=== PATIENT | male | born 1950 ===

== ENCOUNTER 2017-08-12 00:28 | Emergency (ER) | payer MEDICAID ==
[~2017-08-12] VITALS: Ht 172.7 cm; Wt 80.0 kg
[2017-08-12 00:39] VITALS: Ht 172.7 cm; Wt 80.0 kg
--- NOTE | 2017-08-12 00:43 | ERD ---
ER Documentation Chief Complaint Chief Complaint poss. fall HPI The patient is a 66-year-old male, presenting to the ER because he slipped while he was transferring himself from the wheelchair onto a shower chair to arrival. He is awake, alert, denies any trauma, denies headache, neck pain, chest pain, dyspnea, abdominal pain, vomiting, dysuria, diarrhea. He does not smoke nor drink. He is on fentanyl patch for chronic pain syndrome Past medical history: Chronic kidney disease, hypertension, dyslipidemia, chronic pain syndrome Surgical history: Bilateral knee and bilateral shoulder hemiarthroplasty ROS All systems reviewed and are negative except as per history of present illness. Allergies Allergies: Coded Allergies: No Known Allergy (Unverified , 08/12/17) Physical Exam Vitals Vital Signs Date Time Temp Pulse Resp B/P Pulse Ox O2 Delivery O2 Flow Rate FiO2 08/12/17 00:56 90 20 127/74 94 Room Air 08/12/17 00:39 97.9 74 20 127/74 94 Physical Exam Const: No acute distress. Awake, alert, able to answer question appropriately Head: Atraumatic. Eyes: Normal Conjunctiva. ENT: Normal External Ears, Nose and Mouth. Neck: Full range of motion. No meningismus. Resp: Clear to auscultation bilaterally. Cardio: Regular rate and rhythm. Abd: Soft, non distended, normal bowel sounds, non tender. Skin: No petechiae or rashes. Back: No midline or flank tenderness. Ext: No cyanosis, or edema. Neur: Awake and alert. No focal deficit Psych: Normal Mood and Affect. Procedures/MDM MEDICAL MAKING DECISION: the patient is a 66-year-old male, presenting to the ER because of a near fall without any significant injury. He denies any drug abuse, head injury, dyspnea. He is stable for outpatient follow-up The differential diagnoses considered include but are not limited to overmedication, chronic pain syndrome, dehydration, electrolyte imbalance, pneumonia, cystitis Departure Diagnosis: Primary Impression: Fall with no significant injury Condition: Good Comments I discussed the findings with the patient. I advised the patient to follow-up with the primary physician in about 1-2 days, sooner if needed and return if any concern. Disclaimer: Inadvertent spelling and grammatical errors are likely due to EHR/ dictation software use and do not reflect on the overall quality of patient care. Also, please note that the electronic time recorded on this note does not necessarily reflect the actual time of the patient encounter. MAX CASTRO MD Aug 12, 2017 00:43
[2017-08-12 03:17] VITALS: BP 126/73; PULSE 74; RESP 18
== END 2017-08-12 03:17 | disposition home or self-care (01) ==
LOC: E/R 00:28
DX: Z04.3 Encounter for examination and observation following other accident (principal); I12.9 Hypertensive chronic kidney disease with stage 1 through stage 4 chronic kidney disease, or unspecified chronic kidney disease; N18.9 Chronic kidney disease, unspecified
CPT/HCPCS: 99282